=== PATIENT | male | born 1955 | race Caucasian/White ===

== ENCOUNTER 2020-09-13 19:25 | Emergency (ER) | payer OTHER ==
[~2020-09-13] VITALS: Ht 177 cm; Wt 92.9 kg
[2020-09-13] MEDS ORDERED: NS IV 1000 ML 1,000 ML IV SCH (19:45)
--- NOTE | 2020-09-13 19:51 | ED General ---
General Stated Complaint: COVID POSITIVE/SOB Source of Information: Patient Exam Limitations: No Limitations History of Present Illness Date Seen by Provider: Sep 13, 2020 Time Seen by Provider: 19:30 Initial Comments To ER with reports of shortness of breath. Today is day 10 of Covid illness for him. He has been slightly short of breath but today significantly more so. He denies fevers or chills he has been able to drink plenty of Gatorade but not drink anything. Timing/Duration: 1-2 Days Severity: Moderate Associated Systoms: Denies Symptoms Allergies and Home Medications Allergies Coded Allergies: No Known Drug Allergies (Unverified , 09/13/20) Patient Home Medication List Home Medication List Reviewed: Yes Review of Systems Review of Systems Constitutional: see HPI EENTM: see HPI Respiratory: no symptoms reported Cardiovascular: no symptoms reported Genitourinary: no symptoms reported Musculoskeletal: no symptoms reported Skin: no symptoms reported Psychiatric/Neurological: No Symptoms Reported Hematologic/Lymphatic: No Symptoms Reported Past Wpyuyil-[id number]-Uiaans Hx Patient Social History Recent Foreign Travel: No Contact w/Someone Who Travel: No Physical Exam Vital Signs Vital Signs - First Documented 09/13/20 19:35 Temp 39.1 Pulse 63 Resp 22 B/P (MAP) 91/57 (68) Pulse Ox 95 O2 Delivery Room Air Capillary Refill : Height, Weight, BMI Height: '" Weight: lbs. oz. kg; BMI Method: General Appearance: No Apparent Distress, WD/WN, Other (94% room air.) Eyes: Bilateral Eye Normal Inspection, Bilateral Eye PERRL, Bilateral Eye EOMI Neck: Full Range of Motion, Normal Inspection Respiratory: Normal Breath Sounds, No Accessory Muscle Use, No Respiratory Distress Cardiovascular: Regular Rate, Rhythm, Normal Peripheral Pulses Gastrointestinal: Normal Bowel Sounds, Non Tender, Soft Extremity: Normal Capillary Refill, Normal Inspection Neurologic/Psychiatric: Alert, Oriented x3 Skin: Normal Color, Warm/Dry Progress/Results/Core Measures Suspected Sepsis SIRS Temperature: Pulse: Respiratory Rate: Laboratory Tests 09/13/20 19:44: White Blood Count 6.7 Blood Pressure / Mean: Laboratory Tests 09/13/20 19:44: Creatinine 1.05, Platelet Count 221, Total Bilirubin 0.6 Results/Orders Lab Results Laboratory Tests Test 09/13/20 19:44 Range/Units White Blood Count 6.7 4.3-11.0 10^3/uL Red Blood Count 3.99 L 4.30-5.52 10^6/uL Hemoglobin 12.6 L 13.3-17.7 g/dL Hematocrit 36 L 40-54 % Mean Corpuscular Volume 90 80-99 fL Mean Corpuscular Hemoglobin 32 25-34 pg Mean Corpuscular Hemoglobin Concent 35 32-36 g/dL Red Cell Distribution Width 12.3 10.0-14.5 % Platelet Count 221 130-400 10^3/uL Mean Platelet Volume 9.7 9.0-12.2 fL Immature Granulocyte % (Auto) 0 % Neutrophils (%) (Auto) 76 H 42-75 % Lymphocytes (%) (Auto) 18 12-44 % Monocytes (%) (Auto) 5 0-12 % Eosinophils (%) (Auto) 0 0-10 % Basophils (%) (Auto) 0 0-10 % Neutrophils # (Auto) 5.1 1.8-7.8 10^3/uL Lymphocytes # (Auto) 1.2 1.0-4.0 10^3/uL Monocytes # (Auto) 0.4 0.0-1.0 10^3/uL Eosinophils # (Auto) 0.0 0.0-0.3 10^3/uL Basophils # (Auto) 0.0 0.0-0.1 10^3/uL Immature Granulocyte # (Auto) 0.0 0.0-0.1 10^3/uL D-Dimer 0.96 H 0.00-0.49 UG/ML Sodium Level 131 L 135-145 MMOL/L Potassium Level 3.9 3.6-5.0 MMOL/L Chloride Level 99 98-107 MMOL/L Carbon Dioxide Level 23 21-32 MMOL/L Anion Gap 9 5-14 MMOL/L Blood Urea Nitrogen 15 7-18 MG/DL Creatinine 1.05 0.60-1.30 MG/DL Estimat Glomerular Filtration Rate > 60 BUN/Creatinine Ratio 14 Glucose Level 112 H 70-105 MG/DL Calcium Level 8.2 L 8.5-10.1 MG/DL Corrected Calcium 8.4 L 8.5-10.1 MG/DL Total Bilirubin 0.6 0.1-1.0 MG/DL Aspartate Amino Transf (AST/SGOT) 55 H 5-34 U/L Alanine Aminotransferase (ALT/SGPT) 33 0-55 U/L Alkaline Phosphatase 47 40-136 U/L C-Reactive Protein High Sensitivity 8.32 H 0.00-0.50 MG/DL Total Protein 7.1 6.4-8.2 GM/DL Albumin 3.7 3.2-4.5 GM/DL Procalcitonin 0.05 <0.10 NG/ML My Orders Orders - ANDRE KRISHNAN APRN Cbc With Automated Diff (09/13/20 19:30) Comprehensive Metabolic Panel (09/13/20 19:30) Hs C Reactive Protein (09/13/20 19:30) Fibrin Degradation Products (09/13/20 19:30) Ekg Tracing (09/13/20:30) Chest 1 View, Ap/Pa Only (09/13/20:30) Procalcitonin (Pct) (09/13/20 19:30) Ed Iv/Invasive Line Start (09/13/20 19:30) Ns Iv 1000 Ml (Sodium Chloride 0.9%) (09/13/20 19:45) Ibuprofen Tablet (Motrin Tablet) (09/13/20 20:00) Ibuprofen Tablet (Motrin Tablet) (09/13/20 19:56) Ct Angio Chest W (09/13/20 20:51) Iohexol Injection (Omnipaque 350 Mg/Ml 1 (09/13/20 21:00) Received Contrast (Hold Metformin- Contr (09/13/20 21:00) Ns (Ivpb) (Sodium Chloride 0.9% Ivpb Bag (09/13/20 21:00) Medications Given in ED Current Medications Medications Dose Ordered Sig/Nigel Route Start Time Stop Time Status Last Admin Dose Admin Ibuprofen 800 mg ONCE ONCE PO 09/13/20 20:00 09/13/20 20:01 DC 09/13/20 20:05 800 MG Vital Signs/I&O 09/13/20 09/13/20 19:35 20:05 Temp 39.1 39.1 Pulse 63 Resp 22 B/P (MAP) 91/57 (68) Pulse Ox 95 O2 Delivery Room Air Capillary Refill : Departure Communication (Admissions) 2052-both with the patient's son-in-law (per patient request)Pepe Nagel who is having allergy and fruit raiser physician at [facility] in [place]. Agrees with proceeding with Ct angio chest. Other labs are non actionable. 2143-CT angiogram chest does not reveal in the vascular pathology but there are bilateral infiltrates. However he is outside of the window for Bamlanivimab administration, he does not require hospitalization or supplemental oxygen so dexamethasone is not indicated. He has a known viral illness with a negative procalcitonin so antibiotics are not warranted. Unfortunately not much to do here. He would like to go back to [place], his home, tomorrow. This should be fine. We had a teleconference with his physician son-in-law who agrees with our plan. Impression Primary Impression: COVID-19 Disposition: 01 HOME, SELF-CARE Condition: Stable Departure-Patient Inst. Decision time for Depature: 21:46 Referrals: NO,LOCAL PHYSICIAN (PCP/Family) Primary Care Physician Patient Instructions: Coronavirus Disease 2019 (COVID-19) (DC) Add. Discharge Instructions: 1. Return to ER for any worsening symptoms or other concerns. Keep an eye on your oxygen saturation at home and for any numbers less than 90 certainly you should be evaluated as you may need hospitalized for supplemental oxygen. Unfortunately there is not much to do that is helpful for your illness at this time other than time. ANDRE KRISHNAN PLANNING MANAGER Sep 13, 2020 19:51
[2020-09-13 19:54] LABS: BASOPHILS % (AUTO) 0 % (0-10); EOSINOPHILS % (AUTO) 0 % (0-10); HEMATOCRIT 36 % (40-54); HEMOGLOBIN 12.6 g/dL (13.3-17.7); LYMPHOCYTES # (AUTO) 1.2 10^3/uL (1.0-4.0); LYMPHOCYTES % (AUTO) 18 % (12-44); MEAN CORPUSCULAR HEMOGLOBIN 32 pg (25-34); MEAN CORPUSCULAR HGB CONC 35 g/dL (32-36); MEAN CORPUSCULAR VOLUME 90 fL (80-99); MEAN PLATELET VOLUME 9.7 fL (9.0-12.2); MONOCYTES # (AUTO) 0.4 10^3/uL (0.0-1.0); MONOCYTES % (AUTO) 5 % (0-12); NEUTROPHILS # (AUTO) 5.1 10^3/uL (1.8-7.8); NEUTROPHILS % (AUTO) 76 % (42-75); PLATELET COUNT 221 10^3/uL (130-400); WHITE BLOOD COUNT 6.7 10^3/uL (4.3-11.0)
[2020-09-13] MEDS ORDERED: IBUPROFEN 800 MG (MOTRIN) TAB PO ONE ×2 (19:56→20:00)
--- NOTE | 2020-09-13 20:07 | Diagnostic Imaging Report ---
INDICATION: Covid positive and shortness of breath. COMPARISON: No prior examinations are available for comparison. FINDINGS: The heart size, mediastinal configuration, and pulmonary vascularity are within normal limits. There is no pleural effusion, pneumothorax, or pneumonia. The osseous structures are unremarkable. IMPRESSION: No acute cardiopulmonary abnormality. Dictated by: Dictated on workstation # [id number]
[2020-09-13 20:15] LABS: ALANINE AMINOTRANSFERASE 33 U/L (0-55); ALBUMIN 3.7 GM/DL (3.2-4.5); ALKALINE PHOSPHATASE 47 U/L (40-136); BILIRUBIN,TOTAL 0.6 MG/DL (0.1-1.0); BUN/CREATININE RATIO 14; CALCIUM 8.2 MG/DL (8.5-10.1); CARBON DIOXIDE 23 MMOL/L (21-32); CHLORIDE 99 MMOL/L (98-107); CREATININE SERUM 1.05 MG/DL (0.60-1.30); GFR ESTIMATED > 60; GLUCOSE 112 MG/DL (70-105); POTASSIUM 3.9 MMOL/L (3.6-5.0); SODIUM 131 MMOL/L (135-145); TOTAL PROTEIN 7.1 GM/DL (6.4-8.2)
[2020-09-13] MEDS ORDERED: IOHEXOL 350 MG/ML 100 ML (OMNIPAQUE 350) VIAL IV ONE (21:00)
[2020-09-13] MEDS ORDERED: NS 100 ML (IVPB) BAG IV ONE (21:00)
[2020-09-13] MEDS ORDERED: HOLD METFORMIN - RECEIVED CONTRAST 20 ML VIAL IV SCH (21:00)
--- NOTE | 2020-09-13 21:34 | Diagnostic Imaging Report ---
PROCEDURE: CT angiography of the chest with contrast. TECHNIQUE: Multiple contiguous axial images were obtained through the chest after uneventful bolus administration of intravenous contrast. 3D reconstructed CTA MIP acquisitions were also performed. Auto Exposure Controls were utilized during the CT exam to meet ALARA standards for radiation dose reduction. INDICATION: Covid positive fever and shortness of breath. FINDINGS: There are diffuse bilateral groundglass infiltrates compatible with Covid pneumonia. There is no pleural or pericardial fluid. There is no pneumothorax. Heart size is normal. Thoracic aorta is normal in caliber and without evidence of dissection. There are no filling defects seen within the pulmonary arteries to suggest pulmonary embolism. The visualized intra-abdominal structures are unremarkable. There are postsurgical changes in the cervical spine. There are mild degenerative changes in the thoracic spine. IMPRESSION: 1. Diffuse bilateral groundglass infiltrates compatible with Covid pneumonia. 2. No evidence of aortic dissection or pulmonary embolism. Dictated by: Dictated on workstation # [id number]
[2020-09-13 22:04] VITALS: BP 115/69
== END 2020-09-13 22:06 | disposition home or self-care (01) ==
LOC: ER 19:29
DX: U07.1 COVID-19 (principal)
CPT/HCPCS: 36415; 71045; 71275; 80053; 84145; 85025; 85379; 86141; 93005